=== PATIENT | female | born 1940 | race Caucasian/White ===

== ENCOUNTER 2025-08-06 18:03 | Inpatient (IN) ==
[2025-08-06] MEDS: cefTRIAXone 1 GM VIAL IV ONE (20:54)
[2025-08-06 21:13] LABS: Basophils # (Auto) 0.03 K/mcL (0.00-0.30); Basophils % (Auto) 0.3 % (0.0-2.0); Eosinophils # (Auto) 0 K/mcL (0.00-0.70); Eosinophils % (Auto) 0 % (0.0-7.0); Hematocrit 43.7 % (34.1-44.9); Hemoglobin 13.6 g/dL (11.2-15.7); Lymphocytes # (Auto) 0.82 K/mcL (1.50-4.80); Lymphocytes % (Auto) 6.9 % (15.5-49.0); Mean Corpuscular HGB Conc 31.1 g/dL (31.0-36.0); Monocytes # (Auto) 1.26 K/mcL (0.10-0.90); Monocytes % (Auto) 10.7 % (1.0-12.0); Neutrophils % (Auto) 81.8 % (38.0-78.0); Platelet Count 232 K/mcL (140-440); RBC 4.45 M/mcL (3.59-5.38); WBC 11.8 K/mcL (4.5-11.0)
[2025-08-06 21:47] LABS: Thyroid Stimulating Hormone 1.95 uIU/mL (0.27-5.01)
[2025-08-06 21:50] LABS: ALT/SGPT 11 U/L (<40); AST/SGOT 34 U/L (<32); Albumin 3.8 gm/dL (3.2-5.2); Albumin/Globulin Ratio 1.0 (1.0-2.3); Alkaline Phosphatase 86 U/L (39-117); Anion Gap 13.0 (8.0-16.0); Bilirubin,Total 1.3 mg/dL (0.1-1.0); Blood Urea Nitrogen 23 mg/dL (8-23); Calcium 9.5 mg/dL (8.6-10.4); Carbon Dioxide 28 mmol/L (22-30); Chloride 87 mmol/L (96-108); Globulin 3.7 gm/dL (2.2-3.7); Glucose 101 mg/dL (70-105); Potassium 5.0 mmol/L (3.3-5.1); Sodium 128 mmol/L (133-145)
[2025-08-06 22:46] LABS: Bilirubin,Urine NEGATIVE (Negative); Color,Urine LT. YELLOW; Glucose,Urine (UA) NEGATIVE (Negative); Ketones,Urine TRACE mg/dL (Negative); Leukocyte Esterase,Urine NEGATIVE /uL (Negative); PH,Urine 6.5 (5.0-9.0); Protein,Urine NEGATIVE (Negative); Specific Gravity,Urine 1.015 (1.000-1.035); Urobilinogen,Urine 2.0 mg/dL
[2025-08-07] MEDS: AZITHROMYCIN 500 MG in DEXTROSE 5% IN WATER 250 ML IV ONE (00:28)
[2025-08-07] MEDS ORDERED: IPRATROPIUM/ALBUTEROL 3 ML AMPUL.NEB NEB PRN (08:24)
[2025-08-07] MEDS ORDERED: ONDANSETRON 4 MG/2 ML VIAL IV PRN (08:24)
[2025-08-07] MEDS ORDERED: ACETAMINOPHEN 325 MG TABLET PO PRN (08:27)
[2025-08-07] MEDS ORDERED: WARFARIN 3 MG TABLET PO SCH (08:30)
[2025-08-07] MEDS ORDERED: guaiFENesin/DEXTROMETHORPHAN 5ML UD CUP PO PRN (08:44)
[2025-08-07 08:45] LABS: Basophils # (Auto) 0.03 K/mcL (0.00-0.30); Basophils % (Auto) 0.3 % (0.0-2.0); Eosinophils # (Auto) 0 K/mcL (0.00-0.70); Eosinophils % (Auto) 0 % (0.0-7.0); Hematocrit 39.9 % (34.1-44.9); Hemoglobin 13.3 g/dL (11.2-15.7); Lymphocytes # (Auto) 0.97 K/mcL (1.50-4.80); Lymphocytes % (Auto) 9.9 % (15.5-49.0); Mean Corpuscular HGB Conc 33.3 g/dL (31.0-36.0); Monocytes # (Auto) 1.19 K/mcL (0.10-0.90); Monocytes % (Auto) 12.1 % (1.0-12.0); Neutrophils % (Auto) 77.5 % (38.0-78.0); Platelet Count 202 K/mcL (140-440); RBC 4.33 M/mcL (3.59-5.38); WBC 9.8 K/mcL (4.5-11.0)
[2025-08-07 08:57] LABS: VBG HCO3 30.5 mmol/L (24.0-28.0); VBG PCO2 45.7 mmHg (41.0-51.0); VBG PH 7.44 U (7.32-7.42); VBG PO2 46.2 mmHg (25.0-40.0)
[2025-08-07] MEDS ORDERED: FUROSEMIDE 20 MG TABLET PO SCH (09:00)
[2025-08-07 09:08] LABS: Anion Gap 10.0 (8.0-16.0); Blood Urea Nitrogen 18 mg/dL (8-23); Calcium 9.3 mg/dL (8.6-10.4); Carbon Dioxide 31 mmol/L (22-30); Chloride 88 mmol/L (96-108); Glucose 101 mg/dL (70-105); Potassium 4.9 mmol/L (3.3-5.1); Sodium 129 mmol/L (133-145)
[2025-08-07 09:13] LABS: INR 2.4 (0.9-1.1); Prothrombin Time 28.1 sec (11.9-14.5)
[2025-08-07] MEDS: cefTRIAXone 2 GM in DEXTROSE 5% IN WATER 50 ML IV SCH (10:26)
[2025-08-07] MEDS: LOSARTAN 50 MG TABLET PO SCH (10:30)
[2025-08-07] MEDS: METOPROLOL TARTRATE 25 MG TABLET PO SCH (10:30)
[2025-08-07] MEDS: TIMOLOL 0.5% OPHTH DROPS BOTTLE 5ML OU SCH (10:41)
[2025-08-07] MEDS: LIDOCAINE 4% TOP PATCH TOPICAL SCH (10:41)
[2025-08-07] MEDS: DOCUSATE SODIUM 100 MG CAPSULE PO SCH (10:41)
[2025-08-07] MEDS: OMEPRAZOLE 20 MG CAPSULE PO SCH (10:41)
[2025-08-07] MEDS: VITAMIN D3 25 MCG TABLET PO SCH (10:41)
[2025-08-07] MEDS: AZITHROMYCIN 500 MG in DEXTROSE 5% IN WATER 250 ML IV SCH (14:33)
[2025-08-07] MEDS: WARFARIN 2 MG TABLET PO SCH (14:38)
[2025-08-07] MEDS: 0.9 % SODIUM CHLORIDE 10 ML SYRINGE IV SCH (14:38)
[2025-08-07] MEDS: LATANOPROST OPHTH DROPS 2.5ML BOTTLE OU SCH (20:49)
[2025-08-07] MEDS: SENNOSIDES 1 TABLET PO SCH (20:49)
[2025-08-07] MEDS ORDERED: HALOPERIDOL LACTATE 5 MG/ML VIAL IV PRN (23:56)
[2025-08-08] MEDS: HALOPERIDOL LACTATE 5 MG/ML VIAL IV PRN (00:06)
[2025-08-08] MEDS: HALOPERIDOL LACTATE 5 MG/ML VIAL ONE (01:09)
[2025-08-08 06:16] LABS: Basophils # (Auto) 0.03 K/mcL (0.00-0.30); Basophils % (Auto) 0.3 % (0.0-2.0); Eosinophils # (Auto) 0 K/mcL (0.00-0.70); Eosinophils % (Auto) 0 % (0.0-7.0); Hematocrit 33.2 % (34.1-44.9); Hemoglobin 10.7 g/dL (11.2-15.7); Lymphocytes # (Auto) 0.61 K/mcL (1.50-4.80); Lymphocytes % (Auto) 6.8 % (15.5-49.0); Mean Corpuscular HGB Conc 32.2 g/dL (31.0-36.0); Monocytes # (Auto) 1.08 K/mcL (0.10-0.90); Monocytes % (Auto) 12.0 % (1.0-12.0); Neutrophils % (Auto) 80.7 % (38.0-78.0); Platelet Count 196 K/mcL (140-440); RBC 3.44 M/mcL (3.59-5.38); WBC 9.0 K/mcL (4.5-11.0)
[2025-08-08 06:26] LABS: ALT/SGPT 7 U/L (<40); AST/SGOT 22 U/L (<32); Albumin 3.0 gm/dL (3.2-5.2); Albumin/Globulin Ratio 1.0 (1.0-2.3); Alkaline Phosphatase 66 U/L (39-117); Anion Gap 8.0 (8.0-16.0); Bilirubin,Total 0.7 mg/dL (0.1-1.0); Blood Urea Nitrogen 15 mg/dL (8-23); Calcium 8.5 mg/dL (8.6-10.4); Carbon Dioxide 31 mmol/L (22-30); Chloride 90 mmol/L (96-108); Globulin 2.9 gm/dL (2.2-3.7); Glucose 102 mg/dL (70-105); Potassium 4.2 mmol/L (3.3-5.1); Sodium 129 mmol/L (133-145)
[2025-08-08 10:40] LABS: INR 2.7 (0.9-1.1); Prothrombin Time 31.7 sec (11.9-14.5)
[2025-08-08] MEDS: WARFARIN 2 MG TABLET PO SCH (17:07)
[2025-08-08] MEDS: hydrALAZINE 20 MG/ML VIAL IV PRN (20:48)
[2025-08-09 06:17] LABS: Basophils # (Auto) 0.03 K/mcL (0.00-0.30); Basophils % (Auto) 0.4 % (0.0-2.0); Eosinophils # (Auto) 0.02 K/mcL (0.00-0.70); Eosinophils % (Auto) 0.3 % (0.0-7.0); Hematocrit 42.2 % (34.1-44.9); Hemoglobin 12.7 g/dL (11.2-15.7); Lymphocytes # (Auto) 0.71 K/mcL (1.50-4.80); Lymphocytes % (Auto) 10.2 % (15.5-49.0); Mean Corpuscular HGB Conc 30.1 g/dL (31.0-36.0); Monocytes # (Auto) 0.79 K/mcL (0.10-0.90); Monocytes % (Auto) 11.4 % (1.0-12.0); Neutrophils % (Auto) 77.6 % (38.0-78.0); Platelet Count 228 K/mcL (140-440); RBC 4.05 M/mcL (3.59-5.38); WBC 6.9 K/mcL (4.5-11.0)
[2025-08-09 06:33] LABS: INR 2.9 (0.9-1.1); Prothrombin Time 33.6 sec (11.9-14.5)
[2025-08-09 06:55] LABS: ALT/SGPT 9 U/L (<40); AST/SGOT 24 U/L (<32); Albumin 3.4 gm/dL (3.2-5.2); Albumin/Globulin Ratio 1.0 (1.0-2.3); Alkaline Phosphatase 78 U/L (39-117); Anion Gap 10.0 (8.0-16.0); Bilirubin,Total 0.8 mg/dL (0.1-1.0); Blood Urea Nitrogen 13 mg/dL (8-23); Calcium 9.1 mg/dL (8.6-10.4); Carbon Dioxide 31 mmol/L (22-30); Chloride 90 mmol/L (96-108); Globulin 3.3 gm/dL (2.2-3.7); Glucose 101 mg/dL (70-105); Potassium 4.1 mmol/L (3.3-5.1); Sodium 131 mmol/L (133-145)
[2025-08-09] MEDS ORDERED: WARFARIN 1 MG TABLET PO SCH (14:00)
[2025-08-10 05:59] LABS: Basophils # (Auto) 0.03 K/mcL (0.00-0.30); Basophils % (Auto) 0.4 % (0.0-2.0); Eosinophils # (Auto) 0.01 K/mcL (0.00-0.70); Eosinophils % (Auto) 0.1 % (0.0-7.0); Hematocrit 39.1 % (34.1-44.9); Hemoglobin 12.6 g/dL (11.2-15.7); Lymphocytes # (Auto) 0.86 K/mcL (1.50-4.80); Lymphocytes % (Auto) 11.8 % (15.5-49.0); Mean Corpuscular HGB Conc 32.2 g/dL (31.0-36.0); Monocytes # (Auto) 0.81 K/mcL (0.10-0.90); Monocytes % (Auto) 11.1 % (1.0-12.0); Neutrophils % (Auto) 76.5 % (38.0-78.0); Platelet Count 268 K/mcL (140-440); RBC 4.06 M/mcL (3.59-5.38); WBC 7.3 K/mcL (4.5-11.0)
[2025-08-10 06:09] LABS: INR 2.8 (0.9-1.1); Prothrombin Time 32.5 sec (11.9-14.5)
[2025-08-10 06:25] LABS: ALT/SGPT 7 U/L (<40); AST/SGOT 25 U/L (<32); Albumin 3.4 gm/dL (3.2-5.2); Albumin/Globulin Ratio 1.0 (1.0-2.3); Alkaline Phosphatase 81 U/L (39-117); Anion Gap 11.0 (8.0-16.0); Bilirubin,Total 0.9 mg/dL (0.1-1.0); Blood Urea Nitrogen 13 mg/dL (8-23); Calcium 9.0 mg/dL (8.6-10.4); Carbon Dioxide 28 mmol/L (22-30); Chloride 90 mmol/L (96-108); Globulin 3.4 gm/dL (2.2-3.7); Glucose 110 mg/dL (70-105); Potassium 3.7 mmol/L (3.3-5.1); Sodium 129 mmol/L (133-145)
[2025-08-10] MEDS: ACETAMINOPHEN 325 MG TABLET PO PRN (07:51)
[2025-08-10] MEDS: BISACODYL 10 MG SUPP.RECT PR PRN (12:36)
[2025-08-10] MEDS: WARFARIN 1 MG TABLET PO ONE (14:24)
[2025-08-11 06:06] LABS: Basophils # (Auto) 0.04 K/mcL (0.00-0.30); Basophils % (Auto) 0.6 % (0.0-2.0); Eosinophils # (Auto) 0.01 K/mcL (0.00-0.70); Eosinophils % (Auto) 0.1 % (0.0-7.0); Hematocrit 35.5 % (34.1-44.9); Hemoglobin 11.9 g/dL (11.2-15.7); Lymphocytes # (Auto) 0.72 K/mcL (1.50-4.80); Lymphocytes % (Auto) 10.5 % (15.5-49.0); Mean Corpuscular HGB Conc 33.5 g/dL (31.0-36.0); Monocytes # (Auto) 0.73 K/mcL (0.10-0.90); Monocytes % (Auto) 10.7 % (1.0-12.0); Neutrophils % (Auto) 78.0 % (38.0-78.0); Platelet Count 307 K/mcL (140-440); RBC 3.86 M/mcL (3.59-5.38); WBC 6.9 K/mcL (4.5-11.0)
[2025-08-11 06:15] LABS: INR 2.7 (0.9-1.1); Prothrombin Time 31.3 sec (11.9-14.5)
[2025-08-11] MEDS: WARFARIN 1 MG TABLET PO ONE (13:16)
[2025-08-11 13:48] VITALS: TEMP 97.6; O2SAT 93
== END 2025-08-11 14:15 | DRG 193 ==
LOC: ED 18:03 → ICU 08-07 00:49
PROVIDERS: ADMIT Internal Medicine; ATTEND Internal Medicine